=== PATIENT | male | born 2000 | race Caucasian/White ===

== ENCOUNTER 2022-01-27 08:50 | Emergency (ER) | payer OTHER ==
[~2022-01-27] VITALS: Ht 180.3 cm; Wt 90.7 kg
[~2022-01-27 08:50] MED LIST: ALBU2SYA; ALBU90OI; AMPDEX10 PO; AZIT200SU; AZIT200SU PO; IBUP100S PO; MONT5TCH PO; PRED15SY PO; PROCODE120; STEROID INHALER
[2022-01-27] MEDS ORDERED: Veetids 500500 MG PO (09:38)
== END 2022-01-27 09:38 | disposition home or self-care (01) ==
LOC: ER 08:50
DX: J02.9 Acute pharyngitis, unspecified (principal); Z79.899 Other long term (current) drug therapy
CPT/HCPCS: 87081; 87430; 99283

== ENCOUNTER 2023-11-22 10:31 | Emergency (ER) | payer OTHER ==
[~2023-11-22] VITALS: Ht 180.3 cm; Wt 79.4 kg
[~2023-11-22 10:31] MED LIST changes: +Veetids 500500 MG PO
[2023-11-22 10:37] VITALS: BP 154/85
[2023-11-22] MEDS ORDERED: PENVK500 PO (10:40)
== END 2023-11-22 10:39 | disposition home or self-care (01) ==
LOC: ER 10:31
DX: K04.7 Periapical abscess without sinus (principal)
CPT/HCPCS: 99282